=== PATIENT | male | born 1950 | race Caucasian/White ===

== ENCOUNTER → 2017-11-30 | Outpatient (CLI) | payer MEDICARE ==
[~2017-11-30] MED LIST: REGADENOSON 0.4 MG/5 ML SYRINGE ONE
== END | disposition home or self-care (01) ==
LOC: CFH 06:42
PROVIDERS: ATTEND Internal Medicine Cardiovascular Disease
DX: I77.810 Thoracic aortic ectasia (principal); I10 Essential (primary) hypertension; E78.5 Hyperlipidemia, unspecified; Z85.820 Personal history of malignant melanoma of skin
CPT/HCPCS: 78452; 93017; 93306; A9502; J2785

== ENCOUNTER 2018-10-26 11:30 | Day surgery (SDC) | payer MEDICARE ==
[~2018-10-26] VITALS: Ht 177.8 cm; Wt 87.7 kg
[2018-10-26 11:43] VITALS: BP 118/75
== END 2018-10-26 13:34 | disposition home or self-care (01) ==
LOC: CACL 11:30
PROVIDERS: ATTEND Internal Medicine Cardiovascular Disease
DX: I48.0 Paroxysmal atrial fibrillation (principal); I10 Essential (primary) hypertension; E78.5 Hyperlipidemia, unspecified; E66.3 Overweight; Z68.28 Body mass index [BMI] 28.0-28.9, adult; Z72.89 Other problems related to lifestyle; Z79.01 Long term (current) use of anticoagulants; Z79.899 Other long term (current) drug therapy; Z96.669 Presence of unspecified artificial ankle joint; Z82.49 Family history of ischemic heart disease and other diseases of the circulatory system
CPT/HCPCS: 36415; 80048; 92960; J2704

== ENCOUNTER 2019-01-25 07:57 | Emergency (ER) | payer MEDICARE ==
[~2019-01-25] VITALS: Ht 177.8 cm; Wt 90.7 kg
[~2019-01-25 07:57] MED LIST changes: +AMLO-150 PO; +APIX5TAB PO; +BUDE10.2 INH; +LISI-170 PO; +METO25TA2 PO; +MONT10TA9 PO; +PRAV40TA2 PO; -REGADENOSON 0.4 MG/5 ML SYRINGE ONE
[2019-01-25 08:00] VITALS: BP 124/90
[2019-01-25] MEDS ORDERED: SODIUM CHLORIDE FLUSH 10ML SYR IVF ONE (09:00)
--- NOTE | 2019-01-25 09:11 | NUR ---
PT HAS HX OF A-FIB, CARDIOVERSION IN OCTOBER. PT C/O ELEVATED HEART RATE OF 82, STATES "MY HEART IS ALWAYS AROUND 62". 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 STATES A RATE IN 160'S INSTEAD OF USUAL 120'S POST WORKOUT. DENIES ANY PAIN, SHORTNESS OF BREATH, OR OTHER CURRENT DISTRESS. CALL LIGHT IN REACH.
[2019-01-25 09:31] LABS: ALANINE AMINOTRANSFERASE 23 U/L (12-78); ALBUMIN 3.9 g/dL (3.4-5.0); ANION GAP 4 mmol/L (5-15); CALCIUM 8.5 mg/dL (8.5-10.1); CHLORIDE 111 mmol/L (98-107); CREATININE 1.24 mg/dL (0.7-1.3)
[2019-01-25 09:34] LABS: ALKALINE PHOSPHATASE 67 U/L (45-117); BILIRUBIN,TOTAL 0.9 mg/dL (0.2-1.0); TOTAL PROTEIN 7.3 g/dL (6.4-8.2)
[2019-01-25 10:11] LABS: BASOPHILS # (AUTO) 0.03 x10^3/uL (0-0.1); BASOPHILS % (AUTO) 1 % (0-1); EOSINOPHILS % (AUTO) 5 % (1-7); LYMPHOCYTES # (AUTO) 1.52 x10^3/uL (1-3.4); LYMPHOCYTES % (AUTO) 24 % (22-44); MD NO; MEAN CORPUSCULAR HGB CONC 33.2 g/dL (33.2-36.2); MEAN CORPUSCULAR VOLUME 96.2 fL (81-97); MEAN PLATELET VOLUME 7.9 fL (7.4-10.4); MONOCYTES # (AUTO) 0.48 x10^3/uL (0.2-0.8); MONOCYTES % (AUTO) 7 % (2-9); NEUTROPHILS # (AUTO) 4.13 x10^3/uL (1.8-6.8); NEUTROPHILS % (AUTO) 64 % (42-75); PLATELET COUNT 184 x10^3/uL (130-400); RED BLOOD COUNT 5.47 x10^6/uL (4.38-5.82); RED CELL DISTRIBUTION WIDTH 13.8 % (9.4-14.8)
[2019-01-25] MEDS ORDERED: PROPOFOL 10 MG/ML, 20ML ONE (10:55)
--- NOTE | 2019-01-25 11:23 | NUR ---
CARDIOVERSION COMPLETED WITHOUT ISSUE. PT TOLERATED WELL. TOTAL OF 70MG OF PROPOFOL GIVEN IVP. ONE SHOCK AT 200 JOULES. PROCEDURE STARTED AT 1107, COMPLETE BY 1121. PT AWAKE, RETURNED TO BASELINE, EKG COMPLETED, PT IN SINUR RHYTHM AT THIS TIME. CALL LIGHT IN REACH, AT BEDSIDE.
[2019-01-25] MEDS ORDERED: PROPOFOL 10 MG/ML, 20ML IVPush ONE (11:30)
== END 2019-01-25 12:14 | disposition home or self-care (01) ==
LOC: ED 09:12
DX: I48.0 Paroxysmal atrial fibrillation (principal); I10 Essential (primary) hypertension; J45.909 Unspecified asthma, uncomplicated; E78.00 Pure hypercholesterolemia, unspecified
CPT/HCPCS: 36415; 71045; 80053; 83735; 85025; 92960; 93005; 99152; 99285

== ENCOUNTER 2019-03-27 08:23 | Emergency (ER) | payer MEDICARE ==
[~2019-03-27] VITALS: Ht 177.8 cm; Wt 89.0 kg
--- NOTE | 2019-03-27 09:10 | NUR ---
PT HAS HAD A COUGH SINCE THURSDAY. PALPITATIONS STARTED YESTERDAY WITH DIZZINESS. DIZZINESS WORSE THIS MORNING.
[2019-03-27] MEDS ORDERED: ONDANSETRON 2MG/ML, 2ML ONE (09:26)
[2019-03-27 09:27] LABS: BASOPHILS # (AUTO) 0.01 x10^3/uL (0-0.1); BASOPHILS % (AUTO) 0 % (0-1); EOSINOPHILS # (AUTO) 0.14 x10^3/uL (0-0.4); EOSINOPHILS % (AUTO) 2 % (1-7); LYMPHOCYTES % (AUTO) 12 % (22-44); MD NO; MEAN CORPUSCULAR HEMOGLOBIN 31.9 pg (27.5-34.5); MEAN CORPUSCULAR HGB CONC 33.5 g/dL (33.2-36.2); MEAN PLATELET VOLUME 7.6 fL (7.4-10.4); MONOCYTES # (AUTO) 0.73 x10^3/uL (0.2-0.8); MONOCYTES % (AUTO) 11 % (2-9); NEUTROPHILS # (AUTO) 5.18 x10^3/uL (1.8-6.8); NEUTROPHILS % (AUTO) 76 % (42-75); PLATELET COUNT 167 x10^3/uL (130-400); RED BLOOD COUNT 5.93 x10^6/uL (4.38-5.82); RED CELL DISTRIBUTION WIDTH 13.3 % (9.4-14.8)
--- NOTE | 2019-03-27 09:27 | NUR ---
MEDICATED FOR NAUSEA
[2019-03-27] MEDS ORDERED: ONDANSETRON 2MG/ML, 2ML IVPush ONE (09:30)
[2019-03-27 09:32] LABS: ALANINE AMINOTRANSFERASE 21 U/L (12-78); ANION GAP 5 mmol/L (5-15); CALCIUM 8.4 mg/dL (8.5-10.1); CHLORIDE 104 mmol/L (98-107); CREATININE 1.59 mg/dL (0.7-1.3)
[2019-03-27 09:34] LABS: PROTHROMBIN TIME 10.6 Seconds (9.6-11.5)
[2019-03-27 09:36] LABS: ALKALINE PHOSPHATASE 75 U/L (45-117); BILIRUBIN,TOTAL 0.7 mg/dL (0.2-1.0); TOTAL PROTEIN 7.8 g/dL (6.4-8.2); TROPONIN I < 0.015 ng/mL (0.000-0.045)
[2019-03-27] MEDS ORDERED: DILTIAZEM 5 MG/ML, 5ML ONE (09:50)
[2019-03-27] MEDS ORDERED: DILTIAZEM 5 MG/ML, 5ML IV ONE (10:00)
[2019-03-27] MEDS ORDERED: PROPOFOL 10 MG/ML, 20ML IVPush ONE (11:00)
[2019-03-27] MEDS ORDERED: PROPOFOL 10 MG/ML, 20ML ONE (11:15)
--- NOTE | 2019-03-27 11:30 | NUR ---
CONSENT OBTAINED FOR CARDIOVERSION WITH PROCEDURAL SEDATION. SEE PAPERWORK
--- NOTE | 2019-03-27 12:20 | NUR ---
PT RECOVERED FROM PROCEDURAL SEDATION. REMAINS NSR. WILL CONTINUE TO MONITOR
[2019-03-27 13:17] VITALS: BP 112/70
== END 2019-03-27 13:19 | disposition home or self-care (01) ==
LOC: ED 09:42
DX: I48.0 Paroxysmal atrial fibrillation (principal); R05 Cough; I10 Essential (primary) hypertension; E78.00 Pure hypercholesterolemia, unspecified; J45.909 Unspecified asthma, uncomplicated
CPT/HCPCS: 36415; 71045; 80053; 83605; 83880; 84484; 85025; 85610; 85730; 87040; 92960; 93005; 96374; 96375; 99291; J2405; 99285

== ENCOUNTER 2019-05-20 07:28 | Outpatient (CLI) | payer MEDICARE ==
[~2019-05-20 07:28] MED LIST changes: +MONT10TA11 PO; -MONT10TA9 PO
== END 2019-05-20 23:59 | disposition home or self-care (01) ==
LOC: CFH 07:28
PROVIDERS: ATTEND Internal Medicine Cardiovascular Disease
DX: I08.0 Rheumatic disorders of both mitral and aortic valves (principal); I11.9 Hypertensive heart disease without heart failure; R07.9 Chest pain, unspecified
CPT/HCPCS: 93306

== ENCOUNTER → 2020-07-10 | Outpatient (CLI) | payer MEDICARE ==
[~2020-07-10] MED LIST changes: -MONT10TA11 PO; +MONT10TA17 PO; +SOTA80TA18 PO
== END | disposition home or self-care (01) ==
LOC: CFH 08:36
PROVIDERS: ATTEND Nurse Practitioner Family
DX: I08.8 Other rheumatic multiple valve diseases (principal); I11.9 Hypertensive heart disease without heart failure; R07.9 Chest pain, unspecified
CPT/HCPCS: 93306

== ENCOUNTER → 2020-09-11 | Outpatient (CLI) | payer MEDICARE ==
[~2020-09-11] MED LIST changes: +FLUT1BLS INH
== END | disposition home or self-care (01) ==
LOC: CFH 08:22
PROVIDERS: ATTEND Internal Medicine Cardiovascular Disease
DX: I48.91 Unspecified atrial fibrillation (principal)
CPT/HCPCS: 71045; 75572; 82565